=== PATIENT | female | born 1980 | race Caucasian/White ===

== ENCOUNTER → 2017-10-11 | Day surgery (SDC) | payer MEDICAID ==
[~2017-10-11] VITALS: Ht 162.6 cm; Wt 107.0 kg
[~2017-10-11] MED LIST: ABILIFY20 MG PO; ARIPIPRAZO10 MG/TABL PO; FLUOXETINE20 MG PO; OXYBUTYNIN5 MG PO; PANTOPRAZOLE SO40 MG PO; TRAMADOL 50MG T50 M1 PO
[2017-10-11 14:15] VITALS: BP 116/85
[2017-10-11 14:48] VITALS: BP 116/85
[2017-10-11 14:49] VITALS: BP 129/89
--- NOTE | 2017-10-11 14:57 | Procedure Note ---
Procedure detail Date of procedure: 10/11/17 Anesthesiologist: Paco Nesbitt Complications: None Pre-procedure diagnosis: Degenerative disc disease lumbar spine. Lumbar radiculopathy symptoms. Lumbar postlaminectomy syndrome. Post-procedure diagnosis: Same. Indications for procedure: Very pleasant 37-year-old white female the comes our procedure clinic today for her initial lumbar epidural steroid injections L4-5 level. Procedure detail: Procedure: Lumbar epidural steroid injection under fluoroscopy Informed consent was obtained and the risks and benefits of the procedure were explained to the patient. The patient was taken to the procedure room and noninvasive monitors placed, including noninvasive blood pressure cuff and pulse oximeter. The back was viewed using C-arm Fluoroscopy and prepped using Betadine as a cleansing solution and the L4-L5 interspace was palpated. Skin and subcutaneous tissues were anesthetized using lidocaine 1.5% and a 25-gauge needle. After this, an 18-gauge Touhy epidural needle was placed into the L4-L5 interspace and advanced using fluoroscopic guidance and loss of resistance to air until the epidural space was encountered. After confirmation of needle placement in the epidural space, with dye, a solution containing lidocaine 1.5%, 4 mL and Depo-Medrol 80 mg were incrementally injected into the lumbar epidural space. The patient tolerated the procedure well with no complications. The patient was observed in the Pain Clinic and then discharged home neurologically intact. Plan and disposition: Patient was reevaluated 10 minutes post procedure. She is overwhelmed pressure returns is some pain clinic further evaluation. at [id number]
[2017-10-11 15:10] VITALS: BP 125/85
== END ==
LOC: PM 13:48
PROC: 3E0R33Z Introduction of Anti-inflammatory into Spinal Canal, Percutaneous Approach (ICD-10-PCS; principal; 2017-10-11)
PROC: 3E0R3BZ Introduction of Anesthetic Agent into Spinal Canal, Percutaneous Approach (ICD-10-PCS; 2017-10-11)
PROC: B01B1ZZ Fluoroscopy of Spinal Cord using Low Osmolar Contrast (ICD-10-PCS; 2017-10-11)
DX: M51.16 Intervertebral disc disorders with radiculopathy, lumbar region (principal); M96.1 Postlaminectomy syndrome, not elsewhere classified
CPT/HCPCS: J1040; Q9966

== ENCOUNTER 2017-11-22 13:46 | Day surgery (SDC) | payer MEDICAID ==
[~2017-11-22] VITALS: Ht 162.6 cm; Wt 104.3 kg
[2017-11-22 14:21] VITALS: BP 137/82
[2017-11-22 15:03] VITALS: BP 137/82
[2017-11-22 15:08] VITALS: BP 153/93
--- NOTE | 2017-11-22 15:12 | Procedure Note ---
Procedure detail Date of procedure: 11/22/17 Anesthesiologist: Paco Nesbitt Complications: None Pre-procedure diagnosis: LEFT sacroiliitis. Post-procedure diagnosis: Same. Indications for procedure: Very pleasant 37-year-old white female or presents her procedure clinic today for LEFT SI joint injection. Patient has extreme point tenderness over the LEFT SI joint. Procedure detail: Procedure: Left sacroiliac injection under fluoroscopy Informed consent was obtained and the risk and benefits of the procedure were explained to the patient.~ The patient was taken to the procedure room and noninvasive monitors were placed including noninvasive blood pressure cuff and pulse oximeter.~ The patient was placed prone on the procedure table.~ The~ left hip was cleansed using Betadine as a cleansing solution.~ C-arm fluorosocpy was used to view the left SI joint.~ The skin and subcutaneous tissues were anesthetized using Lidocaine 1.5% and a 25-gauge needle.~ After this, a 22-gauge spinal needle was inserted under fluoroscopic guidance into the inferior aspect of the left SI joint.~ Omnipaque dye was injected and a good spread was seen throughout the joint.~ After this, approximately 5 mL of bupivacaine 0.25% and Depo-Medrol 40 mg was incrementally injected into the sacroiliac joint.~ The patient tolerated the procedure well with no complications.~ The patient was observed in the Pain Clinic for a period of 30-45 minutes, then discharged home neurologically intact.~ Plan and disposition: Patient was reevaluated 10 minutes post procedure. She's doing 90 percent better in terms of her LEFT hip pain. She return to see us in the pain clinic for further evaluation. at [id number]
[2017-11-22 15:20] VITALS: BP 115/76
== END 2017-11-22 15:21 | disposition home or self-care (01) ==
LOC: PM 13:46
PROC: 3E0U33Z Introduction of Anti-inflammatory into Joints, Percutaneous Approach (ICD-10-PCS; principal; 2017-11-22)
PROC: 3E0U3BZ Introduction of Anesthetic Agent into Joints, Percutaneous Approach (ICD-10-PCS; 2017-11-22)
DX: M46.1 Sacroiliitis, not elsewhere classified (principal)
CPT/HCPCS: G0260; J1040